=== PATIENT | female | born 1940 | race Caucasian/White ===

== ENCOUNTER → 2019-11-25 | Outpatient (CLI) | payer MEDICARE, MEDICAID ==
--- NOTE | 2019-11-26 09:24 | REP ---
PET/CT: HISTORY: Staging head and neck malignancy. Hoarseness. COMPARISONS: No comparison imaging. TECHNIQUE: 59 minutes following the intravenous injection of a 8.12 mCi dose of F-18 FDG, three-dimensional PET scintigraphy is acquired from the skull vertex to the proximal thighs. Triplanar noncontrast CT scanning is acquired through the same anatomic range for attenuation correction, and image registration with scan parameters optimized to minimize radiation exposure to the patient. PET scintigraphy and CT datasets were fused and displayed on a workstation with multiplanar and projection display capability. PET/CT FINDINGS: There is no abnormal hypermetabolic uptake in the glottic or supraglottic larynx region. There is some asymmetric uptake along the lateral wall of the hypopharynx on the right compared to the left. Maximum standard uptake value here is 6.39. No mass lesion is visible on accompanying CT here and this may be normal variant skeletal muscle uptake. Clinical correlation is advised. Head and neck soft tissues are otherwise unremarkable. No abnormal hypermetabolic uptake is seen in the neck nodes. There is no discernible adenopathy. No abnormal hypermetabolic uptake is seen within the thorax. No abnormal pulmonary parenchymal uptake is observed. In the abdomen and pelvis, there is normal FDG distribution to the liver, spleen, gastrointestinal tract, and genitourinary tract. No abnormal abdominal or pelvic hypermetabolic uptake is appreciated. IMPRESSION: Mildly asymmetric uptake in the lateral wall of the hypopharynx on the right compared to the left of questionable significance. No other abnormal hypermetabolic uptake is appreciated. Electronically Signed by Rich Cortes MD 11/26/2019 11:28 A
== END ==
LOC: M PLARAD 09:46
PROVIDERS: ATTEND Otolaryngology
DX: C76.0 Malignant neoplasm of head, face and neck (principal)
CPT/HCPCS: 78815; A9552